=== PATIENT | female | born 1985 | race African-American/Black ===

== ENCOUNTER 2020-03-23 17:05 | Emergency (ER) | payer OTHER ==
[2020-03-23 17:30] VITALS: BP 115/67
--- NOTE | 2020-03-23 18:25 | ER Document Report ---
ED Medical Screen (RME) - General Chief Complaint: Abdominal Pain Stated Complaint: LOWER ABDOMINAL PAIN LEG NUMBNESS Notes: Patient is a 35-year-old -[place] female with a history of open heart surgery who presents the emergency department chief complaint of right lower quadrant abdominal pain. States it began a month ago. States that there is no specific provocative or palliative factors. No radiation of pain. States no vaginal bleeding or discharge. She reports her last normal menstrual cycle was over 83 days ago. States she had several tests which were negative. She states the pain would not go away so she came for further evaluation. I have treated and performed a rapid initial assessment of this patient. A comprehensive ED assessment and evaluation of the patient, analysis of test results and completion of medical decision making process will be conducted by additional ED providers. PHYSICAL EXAMINATION: GENERAL: Well-appearing, well-nourished and in no acute distress. A&Ox4. Answers questions appropriately. - Related Data Allergies/Adverse Reactions: Sulfa (Sulfonamide Antibiotics) Allergy (Verified 03/23/20 18:14) Home Medications: vitamin d, nebulizer Physical Exam - Vital signs Vitals: Temp Pulse Resp BP Pulse Ox 98.2 F 88 16 115/67 100 03/23/20 17:29 03/23/20 17:29 03/23/20 17:29 03/23/20 17:29 03/23/20 17:29 Course - Vital Signs Vital signs: Temp Pulse Resp BP Pulse Ox 98.2 F 88 16 115/67 100 03/23/20 17:29 03/23/20 17:29 03/23/20 17:29 03/23/20 17:29 03/23/20 17:29
[2020-03-23 18:46] LABS: ABSOLUTE EOSINOPHILS # (AUTO) 0.1 10^3/uL (0.0-0.6); ABSOLUTE LYMPHOCYTES (AUTO) 2.6 10^3/uL (0.5-4.7); ABSOLUTE MONOCYTES (AUTO) 0.4 10^3/uL (0.1-1.4); ABSOLUTE NEUT (AUTO) 4.7 10^3/uL (1.7-8.2); BASOPHILS % (AUTO) 0.5 % (0-2); EOSINOPHILS % (AUTO) 1.2 % (0-6); HEMATOCRIT 36.3 % (36.0-47.0); HEMOGLOBIN 12.5 g/dL (12.0-15.5); LYMPHOCYTES % (AUTO) 33.5 % (13-45); MEAN CORPUSCULAR HEMOGLOBIN 30.1 pg (27.0-33.4); MEAN CORPUSCULAR HGB CONC 34.5 g/dL (32.0-36.0); MEAN CORPUSCULAR VOLUME 87 fl (80-97); MONOCYTES % (AUTO) 4.5 % (3-13); PLATELET COUNT 381 10^3/uL (150-450); RED BLOOD COUNT 4.17 10^6/uL (3.72-5.28); RED CELL DISTRIBUTION WIDTH 14.7 % (11.5-14.0); SEGMENTED NEUTROPHILS % (AUTO) 60.3 % (42-78); TOTAL CELLS COUNTED % (AUTO) 100 %; WHITE BLOOD COUNT 7.7 10^3/uL (4.0-10.5)
[2020-03-23 18:49] LABS: APPEARANCE,URINE CLEAR; BILIRUBIN,URINE NEGATIVE (NEGATIVE); COLOR,URINE STRAW; GLUCOSE, URINE NEGATIVE (NEGATIVE); KETONES,URINE NEGATIVE (NEGATIVE); PROTEIN,URINE NEGATIVE (NEGATIVE); URINE SPECIFIC GRAVITY 1.003; UROBILINOGEN,URINE NEGATIVE mg/dL (<2.0)
[2020-03-23 19:06] LABS: ALBUMIN 3.9 g/dL (3.5-5.0); ALKALINE PHOSPHATASE 103 U/L (38-126); ANION GAP 8 (5-19); ASPARTATE AMINO TRANSFERASE 23 U/L (14-36); BILIRUBIN,DIRECT 0.3 mg/dL (0.0-0.4); BILIRUBIN,TOTAL 0.4 mg/dL (0.2-1.3); BLOOD UREA NITROGEN 10 mg/dL (7-20); CALCIUM 9.4 mg/dL (8.4-10.2); CARBON DIOXIDE 27 mmol/L (22-30); CHLORIDE 102 mmol/L (98-107); GLUCOSE 153 mg/dL (75-110); POTASSIUM 4.4 mmol/L (3.6-5.0); TOTAL PROTEIN 7.3 g/dL (6.3-8.2)
== END 2020-03-23 19:33 | disposition left against medical advice (07) ==
LOC: ER 17:05
DX: R10.31 Right lower quadrant pain (principal); Z79.899 Other long term (current) drug therapy; Z88.2 Allergy status to sulfonamides; Z53.20 Procedure and treatment not carried out because of patient's decision for unspecified reasons
CPT/HCPCS: 36415; 80053; 81001; 83690; 84703; 85025; 99281

== ENCOUNTER 2020-05-19 00:03 | Emergency (ER) | payer BC, OTHER ==
[2020-05-19 01:47] LABS: ABSOLUTE EOSINOPHILS # (AUTO) 0.1 10^3/uL (0.0-0.6); ABSOLUTE LYMPHOCYTES (AUTO) 2.3 10^3/uL (0.5-4.7); ABSOLUTE MONOCYTES (AUTO) 0.3 10^3/uL (0.1-1.4); ABSOLUTE NEUT (AUTO) 4.1 10^3/uL (1.7-8.2); APPEARANCE,URINE CLEAR; BASOPHILS % (AUTO) 0.6 % (0-2); BILIRUBIN,URINE NEGATIVE (NEGATIVE); COLOR,URINE STRAW; EOSINOPHILS % (AUTO) 1.6 % (0-6); GLUCOSE, URINE NEGATIVE (NEGATIVE); HEMATOCRIT 34.4 % (36.0-47.0); HEMOGLOBIN 11.6 g/dL (12.0-15.5); KETONES,URINE NEGATIVE (NEGATIVE); LEUKOCYTE ESTERASE,URINE NEGATIVE (NEGATIVE); LYMPHOCYTES % (AUTO) 33.1 % (13-45); MEAN CORPUSCULAR HEMOGLOBIN 29.7 pg (27.0-33.4); MEAN CORPUSCULAR HGB CONC 33.7 g/dL (32.0-36.0); MEAN CORPUSCULAR VOLUME 88 fl (80-97); MONOCYTES % (AUTO) 4.9 % (3-13); NITRITE,URINE NEGATIVE (NEGATIVE); PLATELET COUNT 416 10^3/uL (150-450); PROTEIN,URINE NEGATIVE (NEGATIVE); RED BLOOD COUNT 3.91 10^6/uL (3.72-5.28); RED CELL DISTRIBUTION WIDTH 14.6 % (11.5-14.0); SEGMENTED NEUTROPHILS % (AUTO) 59.8 % (42-78); TOTAL CELLS COUNTED % (AUTO) 100 %; URINE SPECIFIC GRAVITY 1.012; UROBILINOGEN,URINE NEGATIVE mg/dL (<2.0); WHITE BLOOD COUNT 6.9 10^3/uL (4.0-10.5)
[2020-05-19 01:57] LABS: ALBUMIN 3.6 g/dL (3.5-5.0); ALKALINE PHOSPHATASE 73 U/L (38-126); ASPARTATE AMINO TRANSFERASE 30 U/L (14-36); BILIRUBIN,DIRECT 0.1 mg/dL (0.0-0.4); BILIRUBIN,TOTAL 0.4 mg/dL (0.2-1.3); BLOOD UREA NITROGEN 16 mg/dL (7-20); CALCIUM 9.1 mg/dL (8.4-10.2); GLUCOSE 104 mg/dL (75-110); POTASSIUM 4.7 mmol/L (3.6-5.0); TOTAL PROTEIN 7.2 g/dL (6.3-8.2)
[2020-05-19 02:03] LABS: ANION GAP 4 (5-19); CARBON DIOXIDE 28 mmol/L (22-30); CHLORIDE 104 mmol/L (98-107)
--- NOTE | 2020-05-19 03:28 | ER Document Report ---
ED GI/ <BLANCA BALBUENA - Last Filed: 05/19/20 08:17> - Related Data Home Medications: VITAMIN d2 <REAL MONZON - Last Filed: 05/19/20 08:19> <CARLOS CHAN - Last Filed: 05/19/20 09:56> - General Chief Complaint: Lower Abdominal Pain Stated Complaint: SEVERE PELVIC PAIN Time Seen by Provider: 05/19/20 03:21 Primary Care Provider: KIRSTEN SAXENA MD [Primary Care Provider] - Follow up as needed Notes: Patient is a 35-year-old female who presents emergency department with a chief complaint of lower abdominal pain, primarily on the right side that started about 2 months ago. Patient reports that she went to her primary care provider and also went to [facility] with no results of why she is having this pain. (Ry SUTTONREAL) - Related Data Allergies/Adverse Reactions: Sulfa (Sulfonamide Antibiotics) Allergy (Verified 03/23/20 18:14) Past Medical History - Social History Smoking Status: Never Smoker <REAL MONZON - Last Filed: 05/19/20 08:19> - Social History Smoking Status: Never Smoker Frequency of alcohol use: None Drug Abuse: None Family History: Reviewed & Not Pertinent <CARLOS CHAN - Last Filed: 05/19/20 09:56> Physical Exam <REAL MONZON - Last Filed: 05/19/20 08:19> - Vital signs Vitals: Temp Pulse Resp BP Pulse Ox 98.2 F 88 17 137/80 H 100 05/19/20 00:42 05/19/20 00:42 05/19/20 00:42 05/19/20 00:42 05/19/20 00:42 - Notes Notes: PHYSICAL EXAMINATION: GENERAL: Appears well, healthy, well-nourished, no acute distress. HEAD: Normocephalic, atraumatic. EYES: PERRL, conjunctiva normal, all extraocular movements intact, sclera n onicteric ENT: Moist mucous membranes. NECK: Supple, no noticeable swelling, redness, rash. Normal range of motion. LUNGS: Equal breath sounds bilaterally and clear to auscultation. No wheezes rales or rhonchi. CARDIOVASCULAR: S1-S2, regular rate, regular rhythm. Radial pulses 2+, normal. ABDOMEN: Normoactive bowel sounds. Soft, very tender mid to right lower abdomen. EXTREMITIES: Normal strength and range of motion, no pitting or edema. No cyanosis. NEUROLOGICAL: Moves all extremities upon command. Strength 5/5 in all extremities. PSYCH: Normal mood, normal affect. SKIN: Warm, dry. No rash, lesions, ulcerations noted. Normal skin turgor. (REAL MONZON) Course - Laboratory Results Result Diagrams: 05/19/20 01:12 05/19/20 01:12 <BLANCA BALBUENA - Last Filed: 05/19/20 08:17> - Laboratory Results Result Diagrams: 05/19/20 01:12 05/19/20 01:12 <REAL MONZON - Last Filed: 05/19/20 08:19> - Laboratory Results Result Diagrams: 05/19/20 01:12 05/19/20 01:12 Critical Laboratory Results Reviewed: No Critical Results - Radiology Results Critical Radiology Results Reviewed: No Critical Results <CARLOS CHAN - Last Filed: 05/19/20 09:56> - Re-evaluation Re-evalutation: 05/19/20 08:17 received turn over from DREA Monzon. Patient with RLQ abd pain that has been ongoing for two weeks. Had a pelvic US with OBGYN that was negative. Continues to have pain. CT negative. we will obtain another US to check for torsion. Does admit to some constipation. Last BM yesterday but hard. (BLANCA BALBUENA) 05/19/20 08:19 CT of the abdomen and pelvis did not show any acute abnormality. We will send patient for a transvaginal ultrasound. Report given to BRITTA Sullivan. (REAL MONZON) 05/19/20 08:21 Assumed care of patient from nurse practitioner please. Patient with right lower quadrant abdominal pain for 2 weeks. Was seen at her [facility] and had a negative a pelvic ultrasound. Her CT today is negative for any acute appendicitis or any other etiology for her right lower quadrant abdominal pain. Will send for another pelvic ultrasound to evaluate further for possible torsion this morning. Patient also states that her bowel movements have been consistently hard and slightly difficult to pass. However, her last bowel movement was yesterday. 05/19/20 09:27 Noted pelvic ultrasound. It is normal without any evidence for torsion. The next step is to get this patient over to see her GI specialist for continued abdominal pain; apparently she did see the GI at [facility] and was recommended for colonoscopy but her insurance has denied her coverage. Do think potentially that there could be a constipation entity to this. Will send home with a stool softener. Discussed this plan with the patient. Encouraged her to return if worse. She agrees with the plan. (CARLOS CHAN) - Vital Signs Vital signs: Temp Pulse Resp BP Pulse Ox 97.6 F 62 16 129/78 H 100 05/19/20 09:23 05/19/20 09:23 05/19/20 09:23 05/19/20 09:23 05/19/20 09:23 - Laboratory Results Laboratory Results Interpreted: 05/19/20 05/19/20 01:12 01:12 Hgb 11.6 L Hct 34.4 L RDW 14.6 H Sodium 136.0 L Anion Gap 4 L Est GFR (MDRD) Non-Af 50 L Discharge <BLANCA BALBUENA A - Last Filed: 05/19/20 08:17> <REAL MONZON - Last Filed: 05/19/20 08:19> <CARLOS CHAN - Last Filed: 05/19/20 09:56> - Discharge Clinical Impression: Right lower quadrant abdominal pain Condition: Stable Disposition: HOME, SELF-CARE Instructions: Abdominal Pain ([facility]) Additional Instructions: Take medicines as prescribed. Push fluids. Follow-up with GI specialist without fail. Return if you have worsening symptoms. Today your CTA did not show any acute infection or source for your right lower quadrant abdominal pain. You also had a repeat pelvic ultrasound and it did not show any ovarian cysts o r ovarian torsion. This is reassuring however you should follow up with GI specialist to have further evaluation of this abdominal pain. Prescriptions: Ondansetron [Zofran Odt 4 mg Tablet] 1 - 2 tab PO Q4HP PRN #10 tab.rapdis PRN Reason: Dicyclomine HCl [Bentyl 20 mg Tablet] 20 mg PO TID #15 tablet Polyethylene Glycol 3350 [Miralax Powder 17 gm/Packet] 1 packet PO DAILY #1 pkg Forms: Special Work Note Referrals: KIRSTEN SAXENA MD [Primary Care Provider] - Follow up in 1 week AUGUST BUSCH MD [ACTIVE STAFF] - Follow up in 1 week
[2020-05-19] MEDS ORDERED: MORPHINE SULFATE 10 MG/ML INJ IV ONE (03:41)
[2020-05-19] MEDS ORDERED: ONDANSETRON HCL INJ/PF 4 MG/2 ML SDV IV ONE ×2 (03:42→06:41)
[2020-05-19] MEDS ORDERED: NORMAL SALINE 1000 ML 1,000 ML IV ONE (03:42)
[2020-05-19 04:31] LABS: URINE AMPHETAMINES SCREEN NEGATIVE; URINE BARBITURATES SCREEN NEGATIVE; URINE BENZODIAZEPINES SCREEN NEGATIVE; URINE COCAINE SCREEN NEGATIVE; URINE MARIJUANA (THC) SCREEN NEGATIVE; URINE METHADONE SCREEN NEGATIVE; URINE PHENCYCLIDINE SCREEN NEGATIVE
[2020-05-19] MEDS ORDERED: HYDROMORPHONE HCL INJ/PF 2 MG/ML AMPULE IV ONE (05:11)
--- NOTE | 2020-05-19 07:39 | RADIOLOGY REPORT (SQ) ---
CT ABDOMEN AND PELVIS WITH INTRAVENOUS CONTRAST: 05/19/2020 6:34 AM NURSING STAFFING COORDINATOR HISTORY: 35-year old with right lower quadrant abdominal pain. COMPARISON: None available TECHNIQUE: Axial contiguous images were obtained from the lung bases to the proximal femurs with intravenous intravenous contrast administered. Oral contrast was given to the patient. Sagittal and coronal reconstructions were also obtained and reviewed. This exam was performed according to our departmental dose-optimization program, which includes automated exposure control, adjustment of the mA and/or KV according to the patient's size and/or use of iterative reconstruction technique. FINDINGS: No focal consolidative airspace opacities are seen. No discrete pleural effusions are seen. The visualized hepatic parenchyma demonstrates no focal abnormality. The gallbladder demonstrates no evidence of calcified gallstones. The spleen is normal in size. The pancreas is unremarkable. The bilateral adrenal glands are unremarkable. Both kidneys demonstrate no evidence of hydronephrosis. No renal or ureteral calculi are seen. The urinary bladder is mildly distended. The uterus is present. The stomach is mildly distended by oral contrast. The small bowel loops appear unremarkable. No pericolonic inflammatory stranding is seen. There is a tubular structure at the right lower quadrant which may represent a normal appendix. There is no evidence of pneumoperitoneum or free fluid. The IVC is unremarkable. The visualized portions of the abdominal aorta are within normal limits of size. No significantly enlarged lymph nodes are seen in the abdomen or pelvis. Review of the bone show no evidence of any suspicious lytic or blastic lesions. IMPRESSION: No acute process is seen within the abdomen or pelvis.
--- NOTE | 2020-05-19 09:19 | RADIOLOGY REPORT (SQ) ---
EXAM DESCRIPTION: U/S NON OB PEL TV W/DOPPLER IMAGES COMPLETED DATE/TIME: 05/19/2020 9:10 am REASON FOR STUDY: RLQ pain COMPARISON: None. TECHNIQUE: Dynamic and static grayscale images acquired of the pelvis via transvaginal approach and recorded on PACS. Additional selected color Doppler and spectral images recorded. LIMITATIONS: None. FINDINGS: UTERUS: Contour normal. No mass. ENDOMETRIAL STRIPE: No focal or generalized thickening. No masses. CERVIX: No nabothian cysts. RIGHT OVARY AND DOPPLER: Normal size. No worrisome masses. Normal arterial vascular flow without evid ence for torsion. LEFT OVARY AND DOPPLER: Normal size. No worrisome masses. Normal arterial vascular flow without evide nce for torsion. FREE FLUID: None noted. OTHER: No other significant finding. MEASUREMENTS: UTERUS: 4.0 x 4.3 x 8.3 cm. ENDOMETRIAL STRIPE: 8 mm. RIGHT OVARY: 2.2 x 2.5 x 3.2 cm. LEFT OVARY: 2.2 x 2.6 x 3.4 cm. IMPRESSION: NORMAL TRANSVAGINAL PELVIC ULTRASOUND. TECHNICAL DOCUMENTATION: JOB ID: [id number] [employer]- All Rights Reserved Rev-10/13 Reading location - IP/workstation name: [email or web address]
[2020-05-19 09:24] VITALS: BP 129/78
== END 2020-05-19 09:59 | disposition home or self-care (01) ==
LOC: ER 00:03
DX: R10.31 Right lower quadrant pain (principal); K59.00 Constipation, unspecified; Z88.2 Allergy status to sulfonamides
CPT/HCPCS: 96376; 99285; 96361; 96374; 96375; 36415; 83690; 85025; 81025; 80053; 81001; 80307; 76830; 93976; 74177; J2270; J1170; J2405; J7030